=== PATIENT | male | born 1970 | race Caucasian/White ===

== ENCOUNTER 2019-06-03 16:22 | Emergency (ER) | payer MEDICAID, SELFPAY ==
[2019-06-03 18:13] VITALS: BP 134/74; PULSE 100; RESP 20; TEMP 38.2; O2SAT 95; BMI 22.4
[2019-06-03 18:46] LABS: Influenza A by IFA Positive (Negative); Influenza B by IFA Negative (Negative)
--- NOTE | 2019-06-03 19:01 | ED_ITS ---
HPI - Fever General: Chief Complaint: Fever Stated Complaint: flu s/s Time Seen by Provider: 06/03/19 19:01 Source: patient Mode of arrival: ambulatory Limitations: no limitations History of Present Illness: HPI Narrative: Patient comes in today for complaints of cough fever and chills for last 2 to 3 days. Patient appears mildly unwell. Patient appears in no acute distress. Patient's brother is with him and is also been sick. Patient does not routinely take the flu shot. Patient denies any routine medications. Review of Systems General: Reports: 10 or more systems reviewed and unremarkable except in HPI and below Const: Reports: fever and fatigue Resp: Reports: productive cough PFSH ED PFSH: Statuses (acute, chronic, etc) shown below reflect problem list status as previously entered and may not be historically accurate Social History Smoking and tobacco status: never smoked Physical Exam Const: COMMON NORMALS: no apparent distress and oriented x3 GENERAL APPEARANCE: cooperative HENMT: COMMON NORMALS: normocephalic, external ears normal, EAC's normal, TM's normal bilaterally and external nose normal HEAD & SCALP: normal to inspection and normocephalic FACE & SINUS: normal facial exam NOSE: external nose normal GENERAL EAR: hearing not grossly impaired EXTERNAL EAR: Yes external ears normal EXTERNAL AUDITORY CANAL: EAC's normal TYMPANIC MEMBRANE: TM's normal bilaterally MOUTH: oral and palatal mucosa normal THROAT: posterior oropharynx abnormal erythema Eye: COMMON NORMALS: PERRL and EOMs intact bilaterally PUPIL: Yes PERRL Neck/C-Spine: COMMON NORMALS: full ROM and no lymphadenopathy Lymph: LYMPHATIC: no lymphedema noted Chest: COMMONS NORMALS: inspection of chest normal and palpation of chest normal Resp: COMMON NORMALS: normal respiratory effort AUSCULTATION: rhonchi (mi ld) Cardio: COMMON NORMALS: regular rate and regular rhythm RATE: regular rate RHYTHM: regular rhythm GI: COMMON NORMALS: normal to inspection, nondistended, normoactive bowel sounds and non-tender : COMMON NORMALS: Yes no CVA tenderness BLADDER/KIDNEY EXAM: Yes no CVA tenderness Back/Pelvis: COMMON NORMALS: no CVA tenderness and thoracic and lumbar spine normal to inspection Extremity: COMMON NORMALS: normal to inspection GENERAL: No edema Neuro: COMMON NORMALS: oriented x3, moves all extremities and no focal motor deficits Psych: COMMON NORMALS: mental status grossly normal and cooperative Skin: COMMON NORMALS: no rashes or lesions noted GENERAL SKIN EXAM: no rashes or lesions noted Course Vital Signs: Vital signs: Vital Signs Temperature 100.8 F H 06/03/19 18:13 Pulse Rate 100 06/03/19 18:13 Respiratory Rate 20 H 06/03/19 18:13 Blood Pressure 134/74 06/03/19 18:13 Pulse Oximetry 95 06/03/19 18:13 MDM - Fever MDM Narrative: Medical decision making narrative: Patient comes in for illness for 2 to 3 days. Exam notes lungs are coarse with some mild rhonchi. Posterior pharynx is slightly erythematous. Respirations are even. No acute distress is noted. Patient appears mildly unwell. Differential diagnosis includes upper respiratory infection, influenza, pneumonia. Laboratory notes influenza type A. Reviewed exam with patient recommendations for supportive care and will go ahead and treat with Tamiflu and Promethazine DM for symptoms. Patient reports understanding agreed to plan. Lab Data: Labs: Lab Results 06/03/19 Range/Units 18:00 Influenza Type A A g Positive H (Negative) POC Influenza B Ag Negative (Negative) Discharge Plan Discharge Patient Disposition: Home, Self-Care Clinical Impression: Influenza Condition: Stable Prescriptions: New Tamiflu 75 mg capsule 75 mg PO BID 5 Days Qty: 10 RF: 0 promethazine-DM 6.25-15 mg/5 mL syrup 5 ml PO Q6H PRN (Reason: cough and nausea) Qty: 120 RF: 0 Discharge Orders: Discharge Order (Routine); Ordered 06/03/19 Ordered By: Jamel Laurent Referrals: Damon Moncada MD [Primary Care Provider] - Discharge Diet: Usual diet Discharge Activity: Resume usual activity Patient Instructions: Influenza (ED) Activity Restrictions/Additional Instructions: Drink plenty of fluids Acetaminophen and ibuprofen for pain and fever Medications as directed Follow-up as needed Coding Level of Care Code ED Quality Audit Representative for Tyrone Bishop Exam Problem Focused
[2019-06-03 19:33] VITALS: BP 129/78; PULSE 107; RESP 18; TEMP 37.6; O2SAT 95
[2019-06-03 19:36] VITALS: BP 129/78; PULSE 107; RESP 18; TEMP 37.6; O2SAT 95
== END 2019-06-03 19:38 | disposition home or self-care (01) ==
PROVIDERS: Emergency Provider Nurse Practitioner Family; Family Provider Family Medicine; PCP Family Medicine
DX: J11.1 Influenza due to unidentified influenza virus with other respiratory manifestations (principal)
CPT/HCPCS: 87804; 99281; 99283

== ENCOUNTER → 2020-02-01 13:45 | Outpatient (BNVA) | payer MEDICAID, SELFPAY | PROVIDERS: Family Provider Family Medicine; PCP Family Medicine; Visit Provider Nurse Practitioner | DX: R35.0 Frequency of micturition (principal) | CPT/HCPCS: 81000 ==

== ENCOUNTER → 2020-02-04 13:41 | Outpatient (BNVA) | payer MEDICAID, SELFPAY | PROVIDERS: Family Provider Family Medicine; PCP Family Medicine; Visit Provider Nurse Practitioner Family | DX: Z11.59 Encounter for screening for other viral diseases (principal) | CPT/HCPCS: 87635 ==

== ENCOUNTER → 2023-09-12 11:18 | Outpatient (BNVA) | payer MEDICAID, SELFPAY | PROVIDERS: Family Provider Family Medicine; PCP Family Medicine Adult Medicine; Visit Provider Family Medicine Adult Medicine | DX: M25.512 Pain in left shoulder (principal); G89.29 Other chronic pain | CPT/HCPCS: 73030 ==